=== PATIENT | male | born 1985 | race Caucasian/White ===

== ENCOUNTER 2018-01-22 22:32 | Emergency (ER) | END 2018-01-23 00:53 | disposition left against medical advice (07) ==

== ENCOUNTER 2018-01-23 11:21 | Emergency (ER) | END 2018-01-23 14:15 | disposition home or self-care (01) ==

== ENCOUNTER 2018-03-28 11:33 | Emergency (ER) | END 2018-03-28 13:44 | disposition home or self-care (01) ==